=== PATIENT | male | born 1955 ===

== ENCOUNTER 2018-04-12 15:04 | Emergency (ER) | payer BC ==
[2018-04-12 15:21] VITALS: BP 195/98; PULSE 86; RESP 20; TEMP 98.2; O2SAT 95
--- NOTE | 2018-04-12 15:41 | C.PDOC ---
History Of Present Illness 62 y/o male with no prior history presents to the ED for evaluation of right lower leg swelling. Patient states that 9 days ago he fell from a ladder and landed awkwardly on his right foot. He now complains of persistent swelling to the right lower leg. He has minimal pain to the leg. Patient was seen by PMD today and referred to the ED. Time Seen by Provider: 04/12/18 15:22 Chief Complaint (Nursing): Lower Extremity Problem/Injury History Per: Patient History/Exam Limitations: no limitations Onset/Duration Of Symptoms: Days Current Symptoms Are (Timing): Still Present Past Medical History Reviewed: Historical Data, Nursing Documentation, Vital Signs Vital Signs: Last Vital Signs Temp 98.2 F 04/12/18 15:17 Pulse 86 04/12/18 15:17 Resp 20 04/12/18 15:17 BP 195/98 H 04/12/18 15:17 Pulse Ox 95 04/12/18 15:17 - Medical History PMH: HTN Surgical History: Appendectomy Family History: States: No Known Family Hx - Social History Hx Alcohol Use: No Hx Substance Use: No - Immunization History Hx Tetanus Toxoid Vaccination: No Hx Influenza Vaccination: No Hx Pneumococcal Vaccination: No Review Of Systems Constitutional: Negative for: Fever, Chills Musculoskeletal: Positive for: Foot Pain (minimal), Other (Right lower leg swelling) Skin: Negative for: Rash, Lesions Neurological: Negative for: Weakness, Numbness, Incoordination Physical Exam - Physical Exam Appears: Non-toxic, No Acute Distress Skin: Warm, Dry Head: Atraumatic, Normacephalic Eye(s): bilateral: Normal Inspection, PERRL, EOMI Oral Mucosa: Moist Chest: Symmetrical Respiratory: No Accessory Muscle Use, Other (No respiratory distress) Extremity: Normal ROM, No Tenderness (and no pain with plantar or dorsiflexion of the foot), Capillary Refill (< 2 sec), Swelling (Posterior compartment of the right lower extremity feels firm), Other (Leg is warm, distal pulses 2+) Pulses: Left Dorsalis Pedis: Normal, Right Dorsalis Pedis: Normal Neurological/Psych: Oriented x3, Normal Speech, Normal Motor, Normal Sensation Gait: Steady ED Course And Treatment - Laboratory Results Result Diagrams: 04/12/18 16:20 04/12/18 16:20 O2 Sat by Pulse Oximetry: 95 (RA) Pulse Ox Interpretation: Normal - Other Rad x-ray tib/fib X-Ray: Read By Radiologist Interpretation: Accession No. : [id number]. Patient Name / ID : BILL OLIVERA / [id number]. Exam Date : 04/12/2018 15:36:29 ( Approved ). Study Comment : Sex / Age : M / 62Y. Creator : souleymane mederos. Dictator : Moe Hogan MD. River Guide : Dining Host : Moe Hogan MD. Approver2 : Report Date : 04/12/2018 16:18:46. My Comment : . Date of service: Still. 04/12/2018. PROCEDURE: Radiographs of the right tibia and fibula. HISTORY: leg swelling. COMPARISON: None available. TECHNIQUE: Frontal and lateral views obtained. FINDINGS: BONES: No acute fracture. There are 2 smooth ossific densities adjacent to the medial malleolus which may represent old avulsion fracture fragments or ununited secondary ossification centers. JOINT SPACES: Unremarkable. OTHER FINDINGS: None. IMPRESSION: No acute fracture. Medical Decision Making Medical Decision Making: ro hematoma fx, dvt compartment syndrome. sent by pmd for evla. Initial Plan: Ordered blood work and x-ray tib/fib. 15:30 Doppler US of right lower extremity ordered. 15:37 Paged podiatry resident for consult. 15:52 Podiatry resident evaluated patient at bedside,. Still pending US results/ct results 16:00 Doppler study is negative for DVT. 16:40 Informed that patient is refusing to stay for further results and treatment, states he will sign out against medical advise. Spoke with patient's PMD, Dr. Newman, notified of AMA. AMA (testing): The patient declines to wait for lab results as recommended for medical evaluation. This action is against my medical advice to the patient and with informed refusal. The patient was told that this evaluation is necessary and a full explanation of the rationale was given. The risks of refusing were explained to the patient and include, but are not limited to, worsening of known or currently unknown conditions, permanent disability and from undiagnosed or untreated conditions. The patient has the capacity to make this decision and has the capacity to understand the clinical situation and my explanation of the risks of refusing this test. The patient voluntarily accepts these risks. The patient was given the opportunity to ask questions and reconsider. Disposition Counseled Patient/Family Regarding: Studies Performed, Need For Followup - Disposition Referrals: [facility] [Outside] [facility] [Outside] [facility] [Outside] Brooklyn Maciel MD [Staff Provider] - Disposition: AGAINST MEDICAL ADVICE Disposition Time: 16:44 Condition: UNKNOWN Additional Instructions: return to er with worsening. follow up with specialists. Instructions: Muscle Strain (DC), Dependent Edema (DC), Acute Compartment Syn drome (DC), Leaving Against Medical Advice Forms: [employer] (Swazi) - Clinical Impression Clinical Impression: Leg swelling, Left against medical advice - Scribe Statement The provider has reviewed the documentation as recorded by the Scribe Mary Jo Raya Provider Attestation: All medical record entries made by the Rachelibe were at my direction and personally dictated by me. I have reviewed the chart and agree that the record accurately reflects my personal performance of the history, physical exam, medical decision making, and the department course for this patient. I have also personally directed, reviewed, and agree with the discharge instructions and disposition.
--- NOTE | 2018-04-12 16:30 | RAD ---
Date of service: Still 04/12/2018 PROCEDURE: Radiographs of the right tibia and fibula. HISTORY: leg swelling COMPARISON: None available TECHNIQUE: Frontal and lateral views obtained. FINDINGS: BONES: No acute fracture. There are 2 smooth ossific densities adjacent to the medial malleolus which may represent old avulsion fracture fragments or ununited secondary ossification centers. JOINT SPACES: Unremarkable. OTHER FINDINGS: None. IMPRESSION: No acute fracture.
[2018-04-12 16:40] LABS: BASO # 0.1 K/uL (0.0-0.2); BASO % 0.9 % (0.0-2.0); EOS # 0.3 K/uL (0.0-0.7); EOS % 3.7 % (0.0-4.0); HEMOGLOBIN 12.9 g/dL (12.0-18.0); LYMPH # 2.9 K/uL (1.0-4.3); LYMPH % 37.5 % (20.0-40.0); MEAN CORPUSCULAR HEMOGLOBIN 23.2 pg (27.0-31.0); MEAN CORPUSCULAR HGB CONC 31.8 g/dL (33.0-37.0); MEAN PLATELET VOLUME 8.6 fL (7.2-11.7); MONO # 0.7 K/uL (0.0-0.8); MONO % 8.9 % (0.0-10.0); NEUT # 3.8 K/uL (1.8-7.0); NRBC % 0.1 % (0.0-2.0); RBC 5.57 Mil/uL (4.40-5.90); RED CELL DISTRIBUTION WIDTH 13.8 % (11.5-14.5); WHITE BLOOD COUNT 7.8 K/uL (4.8-10.8)
[2018-04-12 16:50] LABS: INR 1.1; PROTHROMBIN TIME 11.5 SECONDS (9.7-12.2)
[2018-04-12 16:53] LABS: ALB/GLOB RATIO 1.2 (1.0-2.1); ALBUMIN 4.6 g/dL (3.5-5.0); ALT/SGPT 32 U/L (21-72); AST/SGOT 31 U/L (17-59); BLOOD UREA NITROGEN 9 mg/dL (9-20); CALCIUM 9.6 mg/dl (8.6-10.4); GFR NON-AFRICAN AMERICAN > 60
--- NOTE | 2018-04-15 09:51 | VASCLAB ---
Date of service: 04/12/2018 PROCEDURE: Right Lower Extremity Venous Duplex Exam. HISTORY: Swelling PRIORS: None. TECHNIQUE: Right common femoral, femoral, popliteal and posterior tibial, peroneal and great saphenous veins were evaluated. Flow was assessed with color Doppler, compressibility, assessment of phasic flow and augmentation response. Report prepared by ELIZABETH Patton FINDINGS: RIGHT: 1. Common Femoral Vein: 1.1. Compressibility - Fully compressible: Thrombus - None: Flow - Phasic: Augmentation -Normal: Reflux - None. 2. Femoral Vein: 2.1. Compressibility - Fully compressible: Thrombus - None: Flow - Phasic: Augmentation -Normal: Reflux - None. 3. Popliteal Vein: 3.1. Compressibility - Fully compressible: Thrombus - None: Flow - Phasic: Augmentation -Normal: Reflux - None. 4. Posterior Tibial Vein: 4.1. Compressibility - Fully compressible: Thrombus - None: Flow - Phasic: Augmentation -Normal: Reflux - None. 5. Peroneal Vein: 5.1. Unable to visualize due to swelling. 6. Great Saphenous Vein: 6.1. Compressibility - Fully compressible: Thrombus -None: Flow - Phasic: Augmentation - Normal: Reflux - None. OTHER FINDINGS: Normal venous flow noted in the LEFT common femoral vein. IMPRESSION: No evidence of deep or superficial vein thrombosis of the right lower extremity, for the examined veins.
== END 2018-04-12 16:40 | disposition left against medical advice (07) ==
LOC: C.ER 15:04
DX: M79.89 Other specified soft tissue disorders (principal); I10 Essential (primary) hypertension